=== PATIENT | female | born 2000 | race Caucasian/White ===

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

== ENCOUNTER 2021-04-17 15:08 | Observation (INO) | payer OTHER ==
[~2021-04-17] VITALS: Ht 157.5 cm; Wt 70.3 kg
[~2021-04-17 15:08] MED LIST changes: +Pepcid40 MG PO; +Zofran4 MG PO
[2021-04-17 15:50] LABS: Source, Urine Clean Catch
[2021-04-17 15:58] LABS: BASOPHILS ABSOLUTE AUTO 0.05 K/mm3 (0.00-0.23); BASOPHILS PERCENT AUTO 0 % (0-2); Bilirubin, Urine Neg (Neg); Blood, Urine 2+ (Neg); EOSINOPHILS PERCENT AUTO 0 % (0-6); Glucose Qualitative, Urine Neg (Neg); Hematocrit 39.1 % (33.0-51.0); Hemoglobin 13.1 g/dL (11.5-16.0); IMMATURE GRAN ABSOLUTE AUTO 0.04 K/mm3 (0.00-0.10); IMMATURE GRAN PERCENT AUTO 0 % (0-1); Ketones, Urine 4+ (Neg); LYMPHOCYTES ABSOLUTE AUTO 1.39 K/mm3 (0.84-5.20); LYMPHOCYTES PERCENT AUTO 11 % (21-46); Leukocyte Esterase, Urine Neg (Neg); MONOCYTES ABSOLUTE AUTO 0.47 K/mm3 (0.16-1.47); MONOCYTES PERCENT AUTO 4 % (4-13); Mean Corpuscular HGB Conc 33.5 g/dL (31.5-36.5); Mean Corpuscular Volume 87 fL (80-100); Mean Platelet Volume 10.6 fL (9.1-12.4); NEUTROPHILS PERCENT AUTO 85 % (41-73); Nitrite, Urine Neg (Neg); Platelet Count 264 K/mm3 (150-400); Protein, Urine 2+ (Neg); RDW Coefficient Variation 12.9 % (11.7-14.2); RDW Standard Deviation 40.1 fL (35.1-46.3); Red Blood Cell Count 4.51 M/mm3 (3.80-5.20); Specific Gravity, Urine 1.025 (1.003-1.022); Urobilinogen, Urine NORM (Normal); White Blood Cell Count 12.75 K/mm3 (4.00-11.30)
[2021-04-17 16:09] LABS: Base Excess Venous -2.9 mmol/L; Bicarbonate Venous 22.7 mmol/L (24.0-30.0); PCO2 Venous 31.5 mmHg (38-42); PO2 Venous 137 mmHg (38-42); pH Blood Venous 7.44 (7.34-7.37)
[2021-04-17 16:19] LABS: U Amphetamine Screen Not Detected; U Barbituate Screen Not Detected; U Benzodiazapine Screen Not Detected; U Buprenorphine Screen Not Detected; U Cannabinoids Screen Not Detected; U Cocaine Screen Not Detected; U Methadone Screen Not Detected; U Methamphetamine Screen Not Detected; U Opiates Screen Not Detected; U Oxycodone Screen Not Detected; U Phencyclidine Screen Not Detected; U Propoxyphene Screen Not Detected
[2021-04-17 16:20] LABS: Alanine Aminotransfer (ALT/SGP 26 U/L (12-78); Albumin, Blood 4.1 g/dL (3.4-5.0); Albumin/Globulin Ratio 1.2 (0.8-1.8); Alk Phos 60 U/L (50-136); Anion Gap 11 mmol/L (6-16); Aspartate Aminotrans (AST/SGOT 18 U/L (12-37); Bilirubin, Total 1.5 mg/dL (0.1-1.0); Blood Urea Nitrogen 13 mg/dL (8-24); Bun/Creatinine Ratio 20.8 (12.0-20.0); CO2, Blood 22 mmol/L (21-32); Calcium, Blood 9.2 mg/dL (8.5-10.1); Chloride, Blood 107 mmol/L (98-108); Creatinine, Blood 0.63 mg/dL (0.40-1.00); Ethanol (Alcohol), Blood, Med <3 mg/dL; Globulin, Blood 3.5 g/dL (2.2-4.0); Glomerular Filtration Rate >60 (60-); Glucose, Blood 146 mg/dL (70-99); Potassium, Blood 3.2 mmol/L (3.5-5.5); Salicylate <1.7 mg/dL (2.8-20.0); Sodium, Blood 140 mmol/L (136-145); Total Protein, Blood 7.6 g/dL (6.4-8.2)
[2021-04-17 16:24] LABS: Appearance, Urine Hazy (Clear); Color, Urine Pale Yellow (P-Yellow)
[2021-04-17 16:25] LABS: Bacteria Few /hpf; Mucus Heavy (0-Heavy); Squamous Epithelial Cells Few /hpf (Few); White Blood Cells, Urine 0-2 /hpf (0-5)
[2021-04-17 19:02] LABS: Acetaminophen, Random 44.7 ug/mL (10.0-30.0)
[2021-04-17 20:31] LABS: Albumin/Globulin Ratio 1.4 (0.8-1.8); Bilirubin, Direct 0.3 mg/dL (0.0-0.3); Bilirubin, Total 1.3 mg/dL (0.1-1.0); Globulin, Blood 2.9 g/dL (2.2-4.0); Total Protein, Blood 6.9 g/dL (6.4-8.2)
[2021-04-19 19:09] LABS: CORONAVIRUS (COVID19) CSH-NRL Negative (Negative)
== END 2021-04-17 23:53 | disposition home or self-care (01) ==
LOC: ER 15:08 → EOR 15:09
PROVIDERS: ADMIT Student in an Organized Health Care Education/Training Program
DX: T39.1X2A Poisoning by 4-Aminophenol derivatives, intentional self-harm, initial encounter (principal); T43.612A Poisoning by caffeine, intentional self-harm, initial encounter; R00.0 Tachycardia, unspecified; F32.A Depression, unspecified; Z91.018 Allergy to other foods; Z20.822 Contact with and (suspected) exposure to COVID-19
CPT/HCPCS: 80053; 80076; 81001; 81025; 82803; 85025; 93005; 93010; G0480; J7030

== ENCOUNTER 2021-10-17 08:50 | Day surgery (SDC) | payer OTHER ==
[~2021-10-17] VITALS: Ht 157.5 cm; Wt 74.8 kg
--- NOTE | 2021-10-17 10:56 | NUR ---
10/17/21 1056 Demi Gregory PT HAS 6/10 PAIN SHE STATES IT IS TOLERABLE. NO MEDICATION GIVEN.
== END 2021-10-17 11:13 | disposition home or self-care (01) ==
LOC: ORSCSDS 08:50
PROVIDERS: Otolaryngology
PROC: 0CTPXZZ Resection of Tonsils, External Approach (ICD-10-PCS; principal; 2021-10-17 10:15)
DX: J35.01 Chronic tonsillitis (principal)
CPT/HCPCS: 88304; A9270; J0330; J1100; J2270; J2405; J2704; J3010; J7120

== ENCOUNTER 2022-01-10 19:13 | Emergency (ER) | payer OTHER ==
[~2022-01-10] VITALS: Ht 157.5 cm; Wt 74.8 kg
== END 2022-01-10 21:45 | disposition home or self-care (01) ==
LOC: ER 19:13
DX: G43.909 Migraine, unspecified, not intractable, without status migrainosus (principal); Z91.018 Allergy to other foods
CPT/HCPCS: 36415; 96374; 96375; 99283-25; J0780; J1200; J7030

== ENCOUNTER 2022-08-05 02:33 | Day surgery (SDC) | payer SELFPAY ==
--- NOTE | 2022-08-05 11:20 | NUR ---
PT DID NOT SHOW FOR HER APPOINTMENT IN THE [facility] TODAY.
== END 2022-08-05 22:53 | disposition home or self-care (01) ==
LOC: ATC 02:33
DX: R55 Syncope and collapse (principal)
CPT/HCPCS: J0834

== ENCOUNTER 2024-06-06 22:16 | Emergency (ER) | payer OTHER ==
[~2024-06-06] VITALS: Ht 157.5 cm; Wt 72.1 kg
[2024-06-06 23:06] VITALS: BP 146/94
[2024-06-06 23:41] LABS: BASOPHILS ABSOLUTE AUTO 0.05 K/mm3 (0.00-0.23); BASOPHILS PERCENT AUTO 1 % (0-2); EOSINOPHILS ABSOLUTE AUTO 0.03 K/mm3 (0.00-0.68); EOSINOPHILS PERCENT AUTO 0 % (0-6); Hematocrit 43.1 % (33.0-51.0); Hemoglobin 14.8 g/dL (11.5-16.0); IMMATURE GRAN ABSOLUTE AUTO 0.02 K/mm3 (0.00-0.10); IMMATURE GRAN PERCENT AUTO 0 % (0-1); LYMPHOCYTES ABSOLUTE AUTO 2.52 K/mm3 (0.84-5.20); LYMPHOCYTES PERCENT AUTO 29 % (21-46); MONOCYTES ABSOLUTE AUTO 0.39 K/mm3 (0.16-1.47); MONOCYTES PERCENT AUTO 5 % (4-13); Mean Corpuscular HGB 29.6 pg (26.0-34.0); Mean Corpuscular HGB Conc 34.3 g/dL (31.5-36.5); Mean Corpuscular Volume 86 fL (80-100); Mean Platelet Volume 10.5 fL (9.1-12.4); NEUTROPHILS ABSOLUTE AUTO 5.67 K/mm3 (1.96-9.15); NEUTROPHILS PERCENT AUTO 65 % (41-73); Platelet Count 265 K/mm3 (150-400); RDW Coefficient Variation 13.2 % (11.7-14.2); RDW Standard Deviation 41.2 fL (35.1-46.3); White Blood Cell Count 8.68 K/mm3 (4.00-11.30)
[2024-06-07 00:02] LABS: Albumin, Blood 4.4 g/dL (3.4-5.0); Albumin/Globulin Ratio 1.3 (0.8-1.8); Bilirubin, Total 1.3 mg/dL (0.1-1.0); Bun/Creatinine Ratio 18.5 (12.0-20.0); Calcium, Blood 9.2 mg/dL (8.5-10.1); Creatinine, Blood 0.7 mg/dL (0.40-1.00); Globulin, Blood 3.4 g/dL (2.2-4.0); Potassium, Blood 3.5 mmol/L (3.5-5.5); Total Protein, Blood 7.8 g/dL (6.4-8.2)
[2024-06-07 00:47] LABS: Source, Urine Clean Catch
[2024-06-07 01:26] LABS: Appearance, Urine Clear (Clear); Bilirubin, Urine Neg (Neg); Blood, Urine Neg (Neg); Glucose Qualitative, Urine Neg (Neg); Ketones, Urine Neg (Neg); Leukocyte Esterase, Urine Neg (Neg); Nitrite, Urine Neg (Neg); Protein, Urine Neg (Neg); Urobilinogen, Urine NORM (Normal)
[2024-06-07 01:41] LABS: Color, Urine Pale Yellow (P-Yellow)
[2024-06-07 03:45] LABS: Chlamydia Trachomatis Urine NOT DETECTED (NOT DETECT); Neisseria Gonorrhoea Urine NOT DETECTED (NOT DETECT)
[2024-06-09 16:14] LABS: HSV 1 SUBTYPE BY PCR Not Detected; HSV 2 SUBTYPE BY PCR Not Detected; HSV SUBTYPE SOURCE Genital
[2024-06-09 17:25] LABS: HEPATITIS C AB CIA INTERP Negative (Negative); HEPATITIS C ANTIBODY CIA INDEX 0.16 IV
[2024-06-09 22:11] LABS: HIV SEROLOGIC INTERPRETATION HIV Abs Neg; HIV-1 ANTIBODY Negative (Negative); HIV-2 ANTIBODY Negative (Negative)
[2024-06-09 22:13] LABS: HIV 1,2 COMBO ANTIGEN/ANTIBODY Reactive (Negative)
[2024-06-10 20:48] LABS: HIV-1 QUALITATIVE BY NAAT Not Detected (Not Detected); HIV-2 QUALITATIVE BY NAAT Not Detected (Not Detected)
== END 2024-06-07 06:20 | disposition home or self-care (01) ==
LOC: ER 22:16
PROVIDERS: Emergency Medicine; Student in an Organized Health Care Education/Training Program
DX: R10.2 Pelvic and perineal pain (principal); Z11.3 Encounter for screening for infections with a predominantly sexual mode of transmission; Z88.8 Allergy status to other drugs, medicaments and biological substances; Z91.018 Allergy to other foods
CPT/HCPCS: 80053; 81003; 85025; 86592; 86701; 86702; 86803; 87389; 87491; 87529; 87535; 87538; 87591; 99283

== ENCOUNTER 2025-03-21 07:55 | Emergency (ER) | payer OTHER ==
[~2025-03-21] VITALS: Ht 160 cm; Wt 72.6 kg
[2025-03-21] MEDS ORDERED: Magnesium Citrate 300 ML BTL PO ONE (09:20)
[2025-03-21 09:37] LABS: BASOPHILS ABSOLUTE AUTO 0.06 K/mm3 (0.00-0.23); BASOPHILS PERCENT AUTO 1 % (0-2); EOSINOPHILS ABSOLUTE AUTO 0.07 K/mm3 (0.00-0.68); EOSINOPHILS PERCENT AUTO 1 % (0-6); Hematocrit 41.3 % (33.0-51.0); Hemoglobin 14.2 g/dL (11.5-16.0); IMMATURE GRAN ABSOLUTE AUTO 0.01 K/mm3 (0.00-0.10); IMMATURE GRAN PERCENT AUTO 0 % (0-1); LYMPHOCYTES ABSOLUTE AUTO 2.97 K/mm3 (0.84-5.20); LYMPHOCYTES PERCENT AUTO 34 % (21-46); MONOCYTES ABSOLUTE AUTO 0.55 K/mm3 (0.16-1.47); MONOCYTES PERCENT AUTO 6 % (4-13); Mean Corpuscular HGB Conc 34.4 g/dL (31.5-36.5); Mean Corpuscular Volume 86 fL (80-100); NEUTROPHILS ABSOLUTE AUTO 4.99 K/mm3 (1.96-9.15); NEUTROPHILS PERCENT AUTO 58 % (41-73); NRBC ABSOLUTE 0.00 K/mm3 (0.00-0.02); NRBC Auto 0.0 /100 WBC (0.0-0.2); Platelet Count 262 K/mm3 (150-400); RDW Coefficient Variation 12.0 % (11.7-14.2); RDW Standard Deviation 38.0 fL (35.1-46.3)
[2025-03-21 09:54] LABS: Alanine Aminotransfer (ALT/SGP 23.0 U/L (12-78); Albumin, Blood 4.5 g/dL (3.4-5.0); Albumin/Globulin Ratio 1.3 (0.8-1.8); Anion Gap 8.0 mmol/L (3-11); Aspartate Aminotrans (AST/SGOT 14.0 U/L (12-37); Bilirubin, Total 0.4 mg/dL (0.1-1.0); Blood Urea Nitrogen 11.0 mg/dL (8-24); CO2, Blood 27.0 mmol/L (21-32); Calcium, Blood 9.4 mg/dL (8.5-10.1); Chloride, Blood 106.0 mmol/L (98-108); Creatinine, Blood 0.69 mg/dL (0.40-1.00); Globulin, Blood 3.4 g/dL (2.2-4.0); Glucose, Blood 89.0 mg/dL (70-99); Potassium, Blood 3.7 mmol/L (3.5-5.5); Sodium, Blood 137.0 mmol/L (136-145); Total Protein, Blood 7.9 g/dL (6.4-8.2)
[2025-03-21 10:19] LABS: Source, Urine Clean Catch
[2025-03-21 10:24] LABS: Bilirubin, Urine Neg (Neg); Glucose Qualitative, Urine Neg (Neg); Ketones, Urine Neg (Neg); Leukocyte Esterase, Urine Neg (Neg); Protein, Urine Neg (Neg); Specific Gravity, Urine 1.010 (1.003-1.022); Urobilinogen, Urine NORM (Normal)
[2025-03-21 10:39] LABS: Color, Urine Pale Yellow (P-Yellow)
[2025-03-21 10:41] LABS: White Blood Cells, Urine 0-2 /hpf (0-5)
[2025-03-21 11:50] VITALS: BP 122/68
== END 2025-03-21 11:52 | disposition home or self-care (01) ==
LOC: ER 07:55
PROVIDERS: Physician Assistant
DX: K59.00 Constipation, unspecified (principal); Z88.8 Allergy status to other drugs, medicaments and biological substances; Z91.018 Allergy to other foods; Z59.6 Low income; Z59.89 Other problems related to housing and economic circumstances
CPT/HCPCS: 74177; 76856; 80053; 81001; 84703; 85025; 99284-25; A9270; Q9967